=== PATIENT | male | born 1955 | race Asian ===

== ENCOUNTER 2018-07-12 13:50 | Emergency (ER) | payer OTHER ==
[~2018-07-12] VITALS: Ht 172.7 cm; Wt 81.6 kg
[2018-07-12 14:41] LABS: BASOPHILS % (AUTO) 0.7 % (0.0-2.0); EOSINOPHILS % (AUTO) 0.7 % (0.0-3.0); HEMATOCRIT 50.6 % (42.0-52.0); HEMOGLOBIN 17.2 G/DL (14.2-18.0); LYMPHOCYTES % (AUTO) 17.8 % (20.0-45.0); MEAN CORPUSCULAR VOLUME 93 FL (80-99); MONOCYTES % (AUTO) 10.8 % (1.0-10.0); PLATELET COUNT 130 K/UL (150-450); RED BLOOD COUNT 5.46 M/UL (4.70-6.10); RED CELL DISTRIBUTION WIDTH 11.3 % (11.6-14.8); WHITE BLOOD COUNT 5.7 K/UL (4.8-10.8)
[2018-07-12 14:52] LABS: ANION GAP 13 mmol/L (5-15); BLOOD UREA NITROGEN 22 mg/dL (7-18); CALCIUM 8.5 MG/DL (8.5-10.1); CARBON DIOXIDE 23 MMOL/L (21-32); CHLORIDE 103 MMOL/L (98-107); POTASSIUM 4.2 MMOL/L (3.5-5.1); SODIUM 139 MMOL/L (136-145)
[2018-07-12 14:57] LABS: ALANINE AMINOTRANSFERASE 26 U/L (12-78); ALBUMIN 3.5 G/DL (3.4-5.0); ALBUMIN/GLOBULIN RATIO 1.1 (1.0-2.7); ALKALINE PHOSPHATASE 122 U/L (46-116); ASPARTATE AMINO TRANSFERASE 18 U/L (15-37); BILIRUBIN,TOTAL 0.3 MG/DL (0.2-1.0)
--- NOTE | 2018-07-12 15:02 | Emergency Room Report ---
History of Present Illness General Chief Complaint: Pain Present Illness HPI 63 year-old male patient presents ER brought in by ambulance complaining of bilateral leg pain. Patient lives in assisted living facility and was found at ambulance after walking 4 miles away from his living facility. Patient denies falling or injury or accident today. Denies leg swelling or edema. Denies chest pain, shortness of breath, fever, syncope. Denies other acute complaints. reports history of chronic back pain. denies bowel or bladder incontinence. Reports hx of diabetes, schizophrenia, states medication as prescribed. reports taking his medications as instructed. Allergies: Coded Allergies: No Known Allergies (Unverified , 07/12/18) Patient History Past Medical History: see triage record Reviewed Nursing Documentation: PMH: Agreed; PSxH: Agreed Review of Systems All Other Systems: negative except mentioned in HPI Physical Exam Vital Signs Date Time Temp Pulse Resp B/P (MAP) Pulse Ox O2 Delivery O2 Flow Rate FiO2 07/12/18 13:43 98.1 112 20 122/76 99 Room Air 98.1 Sp02 EP Interpretation: reviewed, normal General Appearance: well appearing, no apparent distress, alert, GCS 15, non- toxic Head: normocephalic, atraumatic Eyes: bilateral eye normal inspection, bilateral eye PERRL ENT: hearing grossly normal, normal pharynx, no angioedema, normal voice, uvula midline, moist mucus membranes Neck: full range of motion Respiratory: lungs clear, normal breath sounds, no rhonchi, no respiratory distress, no accessory muscle use, no wheezing, speaking full sentences Cardiovascular #1: regular rate, rhythm, no edema Gastrointestinal: non tender, soft, no mass, non-distended, no guarding, no rebound Genitourinary: no CVA tenderness Musculoskeletal: back normal, digits/nails normal, gait/station normal, normal range of motion, non-tender, no calf tenderness, Mary's Sign negative Neurologic: alert, oriented x3, responsive, motor strength/tone normal, sensory intact Psychiatric: mood/affect normal Skin: no rash Lymphatic: no adenopathy Medical Decision Making PA Attestation Dr. Lorenz is my supervising Physician whom patient management has been discussed with. Diagnostic Impression: Primary Impression: Leg pain, bilateral Additional Impressions: Elevated blood sugar Altered mental status Multiple falls ER Course Pt. presents to the ED c/o bilateral leg pain BIB ambulance. Ddx considered but are not limited to fatigue, anemia, dehydration, blood glucose abnormality. Vital signs: are WNL, pt. is afebrile ER COURSE: patient initially presented to the ER brought in by ambulance for bilateral leg pain after being found to have walked 4 miles away from his assisted nursing facility. Patient reports that he did not fall or have any acute injuries. did not order any imaging, physical exam was benign, low suspicion for fracture. Patient initially appears to be answering questions without difficulty. Patient reports feeling better after rest and stated he was okay to be discharged back to facility. CBC and CMP unremarkable, mild elevation in blood glucose, likely due to patient history diabetes, states he is taking his medication. arranged to have patient transferred home to assisted living facility by ambulance. Prior to discharge while speaking with EMS patient was no longer able to answer questions regarding date or current location that he previously been able to answer. Contacted patient's assisted living facility, patient has a history of diabetes, schizophrenia and hypertension, informed that he has had multiple falls during the past week, reported patient has fallen 4 times in the last week, was seen previously seen at another hospital and discharged home the same day after last fall 2 days ago. Reports patient is normally able to answer questions but states there is sometimes a language barrier, patient also speaks Serbian. staffer living facility please patient would benefit from admission due to repeated falls recently. Due to report from shelter facility and patient change in presentation, will no longer discharge patient home to shelter facility and will admit patient for altered mental status and multiple falls. Will order CT head. Consult with Dr. Lorenz, will admit patient. patient be admitted for altered mental status and multiple falls. CT head moderate atrophy and no acute disease. Patient to be transferred. Consult with Dr. Moss at [facility] who will accept patient care. patient resting comfortably, alert and oriented, nontoxic appearing, in no acute distress. - Please note that this Emergency Department Report was dictated using [employer] multicultural technology software, occasionally this can lead to erroneous entry secondary to interpretation by the dictation equipment. Labs Test 07/12/18 14:25 White Blood Count 5.7 K/UL (4.8-10.8) Red Blood Count 5.46 M/UL (4.70-6.10) Hemoglobin 17.2 G/DL (14.2-18.0) Hematocrit 50.6 % (42.0-52.0) Mean Corpuscular Volume 93 FL (80-99) Mean Corpuscular Hemoglobin 31.6 PG (27.0-31.0) Mean Corpuscular Hemoglobin Concent 34.1 G/DL (32.0-36.0) Red Cell Distribution Width 11.3 % (11.6-14.8) Platelet Count 130 K/UL (150-450) Mean Platelet Volume 5.7 FL (6.5-10.1) Neutrophils (%) (Auto) 70.0 % (45.0-75.0) Lymphocytes (%) (Auto) 17.8 % (20.0-45.0) Monocytes (%) (Auto) 10.8 % (1.0-10.0) Eosinophils (%) (Auto) 0.7 % (0.0-3.0) Basophils (%) (Auto) 0.7 % (0.0-2.0) Sodium Level 139 MMOL/L (136-145) Potassium Level 4.2 MMOL/L (3.5-5.1) Chloride Level 103 MMOL/L (98-107) Carbon Dioxide Level 23 MMOL/L (21-32) Anion Gap 13 mmol/L (5-15) Blood Urea Nitrogen 22 mg/dL (7-18) Creatinine 1.0 MG/DL (0.55-1.30) Estimat Glomerular Filtration Rate > 60 mL/min (>60) Glucose Level 350 MG/DL (74-106) Calcium Level 8.5 MG/DL (8.5-10.1) Total Bilirubin 0.3 MG/DL (0.2-1.0) Aspartate Amino Transf (AST/SGOT) 18 U/L (15-37) Alanine Aminotransferase (ALT/SGPT) 26 U/L (12-78) Alkaline Phosphatase 122 U/L (46-116) Total Protein 6.8 G/DL (6.4-8.2) Albumin 3.5 G/DL (3.4-5.0) Globulin 3.3 g/dL Albumin/Globulin Ratio 1.1 (1.0-2.7) CT/MRI/US Diagnostic Results CT/MRI/US Diagnostic Results : Imaging Test Ordered: CT head Impression negative for acute disease, moderate atrophy Last Vital Signs Date Time Temp Pulse Resp B/P (MAP) Pulse Ox O2 Delivery O2 Flow Rate FiO2 07/12/18 13:43 98.1 112 20 122/76 99 Room Air 98.1 Disposition: XFER SHT-TRM HOSP Condition: Serious Eric Mahoney Jul 12, 2018 15:02
[2018-07-12] MEDS ORDERED: Acetaminophen 500mg (ES) tab ORAL ONE (15:15)
[2018-07-12] MEDS ORDERED: LIDOCAINE700 M1 TP (15:23)
[2018-07-12] MEDS ORDERED: TYLENOL EXTRA500 MG ORAL (15:23)
[2018-07-12] MEDS ORDERED: Methocarbamol 500mg tab ORAL ONE (16:30)
[2018-07-12 17:37] VITALS: BP 142/92
[2018-07-12 19:09] VITALS: BP 139/84
[2018-07-12 20:37] VITALS: BP 153/87
[2018-07-12 20:42] VITALS: BP 153/87
--- NOTE | 2018-07-13 08:54 | Diagnostic Imaging Report ---
Indication: Pain, status post fall Technique: spiral acquisitions obtained through the brain. Angled axial and coronal 5 x 5 mm slices were reconstructed. No IV contrast utilized. Radiation dose was minimized using automated exposure control Total dose length product 1425.35 mGycm. CTDIvol(s) 70.38 mGy Comparison: none FINDINGS: No acute hemorrhage or edema. No mass effect or midline shift. There is age-related enlargement of the ventricles and extra axial CSF spaces. There is minimal periventricular deep white matter ischemic change. Normal figueroa-white differentiation. Visualized orbits are unremarkable. Visualized sinuses are unremarkable. Intact calvarium. There is a small scalp hematoma at the vertex and another in the right occipital region. Prominent cisterna magna IMPRESSION: Chronic and age-related changes. Negative for acute intracranial bleed or mass effect Evidence of extracranial scalp soft tissue injury This agrees with the preliminary interpretation provided overnight by Dr. Moeller The CT scanner at [facility] is accredited by the [employer] and the scans are performed using protocols designed to limit radiation exposure to as low as reasonably achievable to attain images of sufficient resolution adequate for diagnostic evaluation
== END 2018-07-12 20:43 | disposition short-term general hospital (02) ==
LOC: EDBD 13:50 → EMR 14:05 → EDBEDREQSVC 18:34 → EMR 20:43
DX: M79.605 Pain in left leg (principal); M79.604 Pain in right leg; R73.9 Hyperglycemia, unspecified; R41.82 Altered mental status, unspecified; Z91.81 History of falling
CPT/HCPCS: 36415; 70450; 80053; 85025; 99285